=== PATIENT | male | born 1955 | race Caucasian/White ===

== ENCOUNTER 2023-08-17 09:00 | Outpatient (RCR) | payer MEDICARE, SELFPAY | END 2023-08-17 10:20 | disposition home or self-care (01) | LOC: PT 09:00 | PROVIDERS: PCP Family Medicine; Visit Provider Physical Medicine & Rehabilitation | DX: M25.551 Pain in right hip (principal); M25.552 Pain in left hip | CPT/HCPCS: 20560; 97010; 97014; 97035; 97110; 97163; G0283 ==